=== PATIENT | female | born 1950 | race Caucasian/White ===

== ENCOUNTER 2020-12-10 14:03 | Inpatient (IN) ==
[2020-12-10] MEDS ORDERED: GLUCAGON 1 MG VIAL IM PRN (20:46)
[2020-12-10] MEDS ORDERED: hydrALAZINE 20 MG/1 ML VIAL IV PRN (20:46)
[2020-12-10] MEDS ORDERED: MORPHINE 4 MG/1 ML VIAL IV PRN (20:46)
[2020-12-10] MEDS ORDERED: DEXTROSE 50% 25 GM/50 ML VIAL IV PRN (20:46)
[2020-12-10] MEDS ORDERED: ONDANSETRON 4 MG/2 ML VIAL IV PRN (20:46)
[2020-12-10 20:51] LABS: Basophils # 0.1 10*3/uL (0.0-0.2); Basophils % 0.7 % (0.0-0.8); Eosinophils # 0.2 10*3/uL (0.0-0.87); Eosinophils % 2.1 % (0.00-10.9); Hematocrit 43.4 VOL% (35.7-47.0); Immature Granulocytes % 0.6 %; Immature Granulocytes Absolute 0.06 #; Lymphocytes # 3.5 10*3/uL (1.4-4.0); Lymphocytes % 35.9 % (21.3-54.2); Mean Corpuscular HGB Conc 32.3 GM/DL (32-36); Mean Corpuscular Volume 85.6 FL (87-102); Mean Platelet Volume 9.9 FL (9.6-12.0); Monocytes % 7.3 % (1.7-12.7); Neutrophils % 53.4 % (38.7-73.9); Platelet Count 261 T/CUMM (130-400); Red Blood Count 5.07 MC/CUMM (3.8-5.5); Red Cell Distribution Width 13.4 % (9.3-17.3); White Blood Count 9.9 T/CUMM (4-12)
[2020-12-10 21:14] LABS: Albumin 3.6 G/DL (3.4-5.0); Bilirubin,Total 0.7 MG/DL (0.2-1.0); Calcium 9.6 MG/DL (8.5-10.1); Potassium 3.6 MMOL/L (3.5-5.1); Total Protein 7.8 G/DL (6.4-8.3)
[2020-12-10 21:30] LABS: Risk Ratio 2.84; VLDL CHOLESTEROL 55.8 MG/DL
[2020-12-10] MEDS: INSULIN REGULAR 100 UNIT/ML SUBCUT SCH (23:14)
[2020-12-11 08:50] LABS: Troponin I 0.193 NG/ML (0.00-0.045)
[2020-12-11] MEDS ORDERED: NITROGLYCERIN SL 0.4 MG TABLET SL PRN (08:52)
[2020-12-11] MEDS: ENOXAPARIN 80 MG/0.8 ML SYRINGE SUBCUT SCH ×2 (09:15→21:06)
[2020-12-11] MEDS: INSULIN REGULAR 100 UNIT/ML SUBCUT SCH ×4 (09:16→21:06)
[2020-12-11] MEDS: levETIRAcetam 500 MG TABLET PO SCH ×2 (09:16→21:06)
[2020-12-11] MEDS: ASPIRIN EC 81 MG TABLET PO SCH (09:16)
[2020-12-11] MEDS: METOPROLOL SUCCINATE XL 25 MG TABLET PO SCH (09:17)
[2020-12-11] MEDS: LACTATED RINGERS 1,000 ML IV SCH (11:23)
[2020-12-11] MEDS ORDERED: ROSUVASTATIN 20 MG TABLET PO SCH (21:00)
[2020-12-11] MEDS: ROSUVASTATIN 20 MG TABLET PO SCH (21:05)
[2020-12-11] MEDS: DIVALPROEX ER 250 MG TABLET PO SCH (21:05)
[2020-12-12] MEDS: LACTATED RINGERS 1,000 ML IV SCH ×2 (00:21→09:08)
[2020-12-12 05:45] LABS: Basophils # 0.1 10*3/uL (0.0-0.2); Basophils % 0.8 % (0.0-0.8); Eosinophils # 0.2 10*3/uL (0.0-0.87); Eosinophils % 2.8 % (0.00-10.9); Hematocrit 38.4 VOL% (35.7-47.0); Hemoglobin 12.9 GM/DL (12.0-16.0); Immature Granulocytes % 0.5 %; Immature Granulocytes Absolute 0.04 #; Lymphocytes # 3.2 10*3/uL (1.4-4.0); Lymphocytes % 41.9 % (21.3-54.2); Mean Corpuscular HGB Conc 33.6 GM/DL (32-36); Mean Corpuscular Volume 83.7 FL (87-102); Mean Platelet Volume 10.1 FL (9.6-12.0); Monocytes % 7.3 % (1.7-12.7); Neutrophils % 46.7 % (38.7-73.9); Platelet Count 190 T/CUMM (130-400); Red Blood Count 4.59 MC/CUMM (3.8-5.5); Red Cell Distribution Width 13.2 % (9.3-17.3); White Blood Count 7.6 T/CUMM (4-12)
[2020-12-12 05:57] LABS: Osmolality,Calculated 283.3 MOS/KG (273-304); Potassium 3.8 MMOL/L (3.5-5.1)
[2020-12-12 06:02] LABS: Troponin I 0.104 NG/ML (0.00-0.045)
[2020-12-12] MEDS: INSULIN REGULAR 100 UNIT/ML SUBCUT SCH ×4 (09:04→21:00)
[2020-12-12] MEDS: METOPROLOL SUCCINATE XL 25 MG TABLET PO SCH (10:27)
[2020-12-12] MEDS: levETIRAcetam 500 MG TABLET PO SCH ×2 (10:27→20:59)
[2020-12-12] MEDS: ASPIRIN EC 81 MG TABLET PO SCH (10:27)
[2020-12-12] MEDS: CLOPIDOGREL 75 MG TABLET PO SCH (10:27)
[2020-12-12 13:49] LABS: INR 0.9; PT Patient Result 10.2 SECS (9.8-11.9)
[2020-12-12] MEDS ORDERED: WARFARIN 5 MG TABLET PO SCH (18:00)
[2020-12-12] MEDS: ROSUVASTATIN 20 MG TABLET PO SCH (20:59)
[2020-12-12] MEDS: DIVALPROEX ER 250 MG TABLET PO SCH (20:59)
[2020-12-13 05:50] LABS: Basophils # 0.1 10*3/uL (0.0-0.2); Eosinophils # 0.2 10*3/uL (0.0-0.87); Eosinophils % 3.3 % (0.00-10.9); Hematocrit 38.5 VOL% (35.7-47.0); Hemoglobin 12.5 GM/DL (12.0-16.0); Immature Granulocytes % 0.7 %; Immature Granulocytes Absolute 0.05 #; Lymphocytes # 2.8 10*3/uL (1.4-4.0); Lymphocytes % 41.9 % (21.3-54.2); Mean Corpuscular HGB Conc 32.5 GM/DL (32-36); Mean Corpuscular Volume 85.7 FL (87-102); Mean Platelet Volume 10.2 FL (9.6-12.0); Monocytes % 8.4 % (1.7-12.7); Neutrophils % 44.7 % (38.7-73.9); Platelet Count 209 T/CUMM (130-400); Red Blood Count 4.49 MC/CUMM (3.8-5.5); Red Cell Distribution Width 13.2 % (9.3-17.3); White Blood Count 6.8 T/CUMM (4-12)
[2020-12-13 05:58] LABS: PT Patient Result 10.6 SECS (9.8-11.9)
[2020-12-13 06:15] LABS: Calcium 8.6 MG/DL (8.5-10.1); Osmolality,Calculated 284.1 MOS/KG (273-304); Potassium 4.6 MMOL/L (3.5-5.1)
[2020-12-13 06:23] LABS: Atypical Lymphocytes Few; Eosinophils 4 % (0-10); Hypochromasia 1+; Lymphocytes 43 % (20-55); Microcytosis 1+; Platelet Estimate Adequate; Segmented Neutrophils 45 % (50-85); Total Cells Counted 100
[2020-12-13] MEDS: INSULIN REGULAR 100 UNIT/ML SUBCUT SCH ×2 (08:09→11:39)
[2020-12-13] MEDS: ASPIRIN EC 81 MG TABLET PO SCH (08:54)
[2020-12-13] MEDS: levETIRAcetam 500 MG TABLET PO SCH (08:54)
[2020-12-13] MEDS: CLOPIDOGREL 75 MG TABLET PO SCH (08:54)
[2020-12-13] MEDS: METOPROLOL SUCCINATE XL 25 MG TABLET PO SCH (08:55)
[2020-12-13 12:02] VITALS: BP 126/64
== END 2020-12-13 15:30 | disposition home or self-care (01) | DRG 64 ==
LOC: INTOOBSV 15:34 → SUATTDRO 15:34 → N.TELES 15:34
PROVIDERS: ADMIT Internal Medicine; ATTEND Emergency Medicine